=== PATIENT | female | born 1955 | race Two or more races ===

== ENCOUNTER → 2019-09-21 | Outpatient (CLI) | payer OTHER | END | disposition home or self-care (01) | LOC: LAB 15:42 | PROVIDERS: ATTEND Nurse Practitioner Family | DX: Z20.828 Contact with and (suspected) exposure to other viral communicable diseases (principal) | CPT/HCPCS: C9803; U0003 ==

== ENCOUNTER → 2020-08-30 | Outpatient (CLI) | payer BC, OTHER ==
[2020-08-30] VITALS (8 sets, daily range): BP systolic 125–140; BP diastolic 73–96
[~2020-08-30] MED LIST: ONDANSETRON HCL 4 MG/2 ML VIAL IV ONE; ONDANSETRON HCL 4 MG/2 ML VIAL ONE
[2020-08-30] MEDS: BAMLANIVIMAB 700MG/200ML 200 ML IV ONE (11:30)
== END | disposition home or self-care (01) ==
LOC: ER 11:06
PROVIDERS: ATTEND Internal Medicine
DX: Z23 Encounter for immunization (principal); U07.1 COVID-19; R11.0 Nausea
CPT/HCPCS: 96374; J2405; M0239; Q0239

== ENCOUNTER 2020-09-02 18:00 | Inpatient (IN) | payer BC ==
[~2020-09-02] VITALS: Ht 162.6 cm; Wt 68.0 kg
[2020-09-02] MEDS ORDERED: PROMETHAZINE HCL 25 MG/ML 1ML IV PRN (19:00)
[2020-09-02] MEDS ORDERED: DEXTROSE (50%) 50ML SYRG IV PRN (19:00)
[2020-09-02] MEDS ORDERED: REMDESIVIR PER PHARMACY 0 ML IV SCH (19:00)
[2020-09-02] MEDS ORDERED: LACTULOSE 20Gm/30ML SOLN PO PRN (19:00)
[2020-09-02] MEDS ORDERED: SODIUM CHLORIDE 0.9% 1,000 ML IV ONE ×2 (19:00)
[2020-09-02] MEDS ORDERED: NITROGLYCERIN 0.4 MG SL TAB SL PRN (19:15)
[2020-09-02] MEDS ORDERED: MORPHINE SULF INJ 2 MG/ML SYRINGE 1ML IV PRN (19:15)
[2020-09-02 19:23] LABS: Basophils # (auto) 0 10 ^3/uL (0-0.2); Basophils % (auto) 0.4 % (0.0-2.0); Eosinophils # (auto) 0 10 ^3/uL (0-0.8); Hematocrit 39.4 % (36.0-46.0); Hemoglobin 13.7 g/dL (12.2-16.2); Lymphocytes # (auto) 0.6 10 ^3/uL (0.4-5.4); Lymphocytes % (auto) 9.8 % (10.0-50.0); Mean Corpuscular Hemoglobin 32.9 pg (28.0-32.0); Mean Corpuscular Hgb Conc. 34.8 g/dL (32.0-36.0); Mean Corpuscular Volume 94.5 fL (80.0-100.0); Monocytes # (auto) 0.5 10 ^3/uL (0-1.3); Monocytes % (auto) 8.4 % (0.0-12.0); Neutrophils # (auto) 4.7 10 ^3/uL (1.6-8.6); Neutrophils % (auto) 81.4 % (37.0-80.0); Nucleated Red Blood Cells % 0.1 %; Platelet Count (auto) 179 10^3/uL (140-450); Red Blood Cells 4.17 10^6/uL (4.0-5.20); Red Cell Distribution Width 12.9 % (11.8-14.3); White Blood Cell 5.8 10^3/uL (4.4-10.8)
[2020-09-02 19:37] LABS: INR 0.99 (0.9-1.15); Partial Thromboplastin Time 31.5 sec (23.0-31.2)
[2020-09-02 19:41] LABS: Albumin 3.3 g/dL (3.4-5.0); BUN/Creatinine Ratio 26.3; Calcium 8.3 mg/dL (8.5-10.1); Potassium 3.9 mmol/L (3.5-5.1)
[2020-09-02 19:45] LABS: Bilirubin, Total 0.7 mg/dL (0.2-1.0); Total Protein 7.4 g/dL (6.4-8.2)
[2020-09-02 22:00] VITALS: BP 140/79
[2020-09-02] MEDS: FLORASTOR (S. BOULARDII) 250 MG CAP PO SCH (22:02)
[2020-09-02] MEDS: ENOXAPARIN SOD 40 MG/0.4 ML SYRINGE SC SCH (22:02)
[2020-09-02] MEDS: traMADol HCL 50 MG TAB PO PRN (22:03)
[2020-09-02 22:28] VITALS: BP 140/79
[2020-09-03] MEDS: PROMETHAZINE W/CODEINE 5 ML ORAL SYRUP PO PRN ×2 (03:26→20:08)
[2020-09-03 04:35] VITALS: BP 140/79
[2020-09-03 05:00] VITALS: BP 130/72
[2020-09-03 06:41] LABS: Basophils # (auto) 0 10 ^3/uL (0-0.2); Basophils % (auto) 0.3 % (0.0-2.0); Eosinophils # (auto) 0 10 ^3/uL (0-0.8); Hematocrit 34.8 % (36.0-46.0); Hemoglobin 11.9 g/dL (12.2-16.2); Lymphocytes # (auto) 0.9 10 ^3/uL (0.4-5.4); Lymphocytes % (auto) 19.2 % (10.0-50.0); Mean Corpuscular Hemoglobin 32.5 pg (28.0-32.0); Mean Corpuscular Hgb Conc. 34.3 g/dL (32.0-36.0); Monocytes # (auto) 0.4 10 ^3/uL (0-1.3); Neutrophils # (auto) 3.3 10 ^3/uL (1.6-8.6); Neutrophils % (auto) 71.5 % (37.0-80.0); Nucleated Red Blood Cells % 0.1 %; Platelet Count (auto) 162 10^3/uL (140-450); Red Blood Cells 3.66 10^6/uL (4.0-5.20); Red Cell Distribution Width 12.9 % (11.8-14.3); White Blood Cell 4.6 10^3/uL (4.4-10.8)
[2020-09-03 06:46] LABS: Potassium 3.3 mmol/L (3.5-5.1)
[2020-09-03 07:04] LABS: Albumin 2.8 g/dL (3.4-5.0); Bilirubin, Total 0.6 mg/dL (0.2-1.0); CRP High Sensitivity 10.6 mg/dL (< 0.3); Calcium 7.5 mg/dL (8.5-10.1); Total Protein 6.4 g/dL (6.4-8.2)
[2020-09-03] MEDS ORDERED: POTASSIUM CHL 20 Meq TABLET PO ONE (08:30)
[2020-09-03] MEDS: ACETAMINOPHEN 500 MG TAB PO PRN ×2 (08:47→21:39)
[2020-09-03 09:00] VITALS: BP 134/76
[2020-09-03] MEDS: DexAMETHasone SOD PHOS 10MG/1ML VIAL INJ IV SCH (09:16)
[2020-09-03] MEDS: levoFLOXacin 500MG 100 ML IV SCH (09:17)
[2020-09-03] MEDS: ZINC SULFATE 220mg CAP or TAB PO SCH (09:17)
[2020-09-03] MEDS: FLORASTOR (S. BOULARDII) 250 MG CAP PO SCH ×2 (09:17→20:07)
[2020-09-03] MEDS: ASCORBIC ACID 1,000 MG TAB PO SCH (09:17)
[2020-09-03] MEDS: CHOLECALCIFEROL (VITD3) 2,000 UNIT CAP/TAB PO SCH (09:17)
[2020-09-03] MEDS: ENOXAPARIN SOD 40 MG/0.4 ML SYRINGE SC SCH ×2 (09:18→21:30)
[2020-09-03] MEDS ORDERED: ENOXAPARIN SOD 40 MG/0.4 ML SYRINGE SC SCH (10:00)
[2020-09-03] MEDS: traMADol HCL 50 MG TAB PO PRN ×2 (10:15→20:09)
[2020-09-03 13:00] VITALS: BP 131/69
[2020-09-03] MEDS ORDERED: REMDESIVIR 200 MG in NS 210ml LOADING DOSE ADULT IV ONE (15:00)
[2020-09-03 17:00] VITALS: BP 118/69
[2020-09-03] MEDS: ALBUTEROL SULF HFA 90MCG INH 200DOSE IN PRN (19:17)
[2020-09-03] MEDS: BUDESONIDE (INHALATION) 180 MCG IH IN SCH (19:17)
[2020-09-03] MEDS: TEMAZEPAM 15 MG CAP PO PRN (21:35)
[2020-09-03 21:50] VITALS: BP 116/74
[2020-09-04 05:00] VITALS: BP 129/78
[2020-09-04 06:42] LABS: Potassium 3.5 mmol/L (3.5-5.1)
[2020-09-04 06:56] LABS: Albumin 3.4 g/dL (3.4-5.0); BUN/Creatinine Ratio 16.5; Bilirubin, Total 0.5 mg/dL (0.2-1.0); Calcium 9.1 mg/dL (8.5-10.1); Total Protein 8.6 g/dL (6.4-8.2)
[2020-09-04] MEDS: ALBUTEROL SULF HFA 90MCG INH 200DOSE IN PRN ×2 (07:00→19:12)
[2020-09-04] MEDS: BUDESONIDE (INHALATION) 180 MCG IH IN SCH ×2 (07:00→19:12)
[2020-09-04] MEDS: PROMETHAZINE W/CODEINE 5 ML ORAL SYRUP PO PRN ×3 (08:39→21:47)
[2020-09-04] MEDS: ACETAMINOPHEN 500 MG TAB PO PRN ×2 (08:40→17:44)
[2020-09-04 08:47] VITALS: BP 122/71
[2020-09-04] MEDS: levoFLOXacin 500MG 100 ML IV SCH (09:45)
[2020-09-04] MEDS: CHOLECALCIFEROL (VITD3) 2,000 UNIT CAP/TAB PO SCH (09:45)
[2020-09-04] MEDS: ZINC SULFATE 220mg CAP or TAB PO SCH (09:45)
[2020-09-04] MEDS: ENOXAPARIN SOD 40 MG/0.4 ML SYRINGE SC SCH ×2 (09:45→21:30)
[2020-09-04] MEDS: ASCORBIC ACID 1,000 MG TAB PO SCH (09:45)
[2020-09-04] MEDS: DexAMETHasone SOD PHOS 10MG/1ML VIAL INJ IV SCH (09:45)
[2020-09-04] MEDS: FLORASTOR (S. BOULARDII) 250 MG CAP PO SCH ×2 (09:45→21:30)
[2020-09-04 12:41] VITALS: BP 110/64
[2020-09-04] MEDS: REMDESIVIR 100mg 100 MG in SODIUM CHL 0.9% 230 ML IV SCH (16:01)
[2020-09-04 16:42] VITALS: BP 113/63
[2020-09-04] MEDS: TEMAZEPAM 15 MG CAP PO PRN (21:41)
[2020-09-04] MEDS: traMADol HCL 50 MG TAB PO PRN (21:42)
[2020-09-04 22:40] VITALS: BP 126/72
[2020-09-05 05:00] VITALS: BP 124/73
[2020-09-05] MEDS: traMADol HCL 50 MG TAB PO PRN ×3 (05:00→17:11)
[2020-09-05] MEDS: BUDESONIDE (INHALATION) 180 MCG IH IN SCH ×2 (06:05→18:50)
[2020-09-05] MEDS: ALBUTEROL SULF HFA 90MCG INH 200DOSE IN PRN ×2 (06:05→18:50)
[2020-09-05 06:07] LABS: Basophils # (auto) 0 10 ^3/uL (0-0.2); Eosinophils # (auto) 0 10 ^3/uL (0-0.8); Hematocrit 39.2 % (36.0-46.0); Hemoglobin 13.4 g/dL (12.2-16.2); Lymphocytes # (auto) 0.6 10 ^3/uL (0.4-5.4); Lymphocytes % (auto) 12.9 % (10.0-50.0); Mean Corpuscular Hemoglobin 32.1 pg (28.0-32.0); Mean Corpuscular Hgb Conc. 34.1 g/dL (32.0-36.0); Mean Corpuscular Volume 94.2 fL (80.0-100.0); Monocytes # (auto) 0.2 10 ^3/uL (0-1.3); Monocytes % (auto) 4.5 % (0.0-12.0); Neutrophils % (auto) 82.6 % (37.0-80.0); Nucleated Red Blood Cells % 0.1 %; Platelet Count (auto) 318 10^3/uL (140-450); Red Blood Cells 4.16 10^6/uL (4.0-5.20); White Blood Cell 4.8 10^3/uL (4.4-10.8)
[2020-09-05 06:29] LABS: Potassium 3.7 mmol/L (3.5-5.1)
[2020-09-05 06:40] LABS: Albumin 3.1 g/dL (3.4-5.0); BUN/Creatinine Ratio 31.5; Bilirubin, Total 0.5 mg/dL (0.2-1.0); CRP High Sensitivity 4.79 mg/dL (< 0.3); Calcium 8.8 mg/dL (8.5-10.1); Total Protein 7.4 g/dL (6.4-8.2)
[2020-09-05 08:51] VITALS: BP 115/64
[2020-09-05] MEDS: levoFLOXacin 500MG 100 ML IV SCH (09:44)
[2020-09-05] MEDS: DexAMETHasone SOD PHOS 10MG/1ML VIAL INJ IV SCH (09:44)
[2020-09-05] MEDS: CHOLECALCIFEROL (VITD3) 2,000 UNIT CAP/TAB PO SCH (09:45)
[2020-09-05] MEDS: ZINC SULFATE 220mg CAP or TAB PO SCH (09:45)
[2020-09-05] MEDS: ASCORBIC ACID 1,000 MG TAB PO SCH (09:45)
[2020-09-05] MEDS: ENOXAPARIN SOD 40 MG/0.4 ML SYRINGE SC SCH ×2 (09:45→21:15)
[2020-09-05] MEDS: FLORASTOR (S. BOULARDII) 250 MG CAP PO SCH ×2 (09:45→21:15)
[2020-09-05] MEDS: PROMETHAZINE W/CODEINE 5 ML ORAL SYRUP PO PRN ×3 (10:34→21:16)
[2020-09-05 12:51] VITALS: BP 113/72
[2020-09-05] MEDS: REMDESIVIR 100mg 100 MG in SODIUM CHL 0.9% 230 ML IV SCH (15:08)
[2020-09-05 16:49] VITALS: BP 117/72
[2020-09-05] MEDS: TEMAZEPAM 15 MG CAP PO PRN (21:15)
[2020-09-05] MEDS: ACETAMINOPHEN 500 MG TAB PO PRN (21:21)
[2020-09-05 22:00] VITALS: BP 109/68
[2020-09-05 23:00] VITALS: BP 109/68
[2020-09-06] MEDS: traMADol HCL 50 MG TAB PO PRN (04:53)
[2020-09-06 05:00] VITALS: BP 126/69
[2020-09-06] MEDS: ALBUTEROL SULF HFA 90MCG INH 200DOSE IN PRN ×2 (07:07→18:43)
[2020-09-06] MEDS: BUDESONIDE (INHALATION) 180 MCG IH IN SCH ×2 (07:08→18:44)
[2020-09-06 09:22] VITALS: BP 114/71
[2020-09-06 09:57] LABS: Bilirubin, Total 0.5 mg/dL (0.2-1.0); Calcium 8.7 mg/dL (8.5-10.1); Potassium 3.4 mmol/L (3.5-5.1)
[2020-09-06] MEDS: FLORASTOR (S. BOULARDII) 250 MG CAP PO SCH ×2 (09:58→20:10)
[2020-09-06] MEDS: ZINC SULFATE 220mg CAP or TAB PO SCH (09:58)
[2020-09-06] MEDS: DexAMETHasone SOD PHOS 10MG/1ML VIAL INJ IV SCH (09:58)
[2020-09-06] MEDS: CHOLECALCIFEROL (VITD3) 2,000 UNIT CAP/TAB PO SCH (09:58)
[2020-09-06] MEDS: ENOXAPARIN SOD 40 MG/0.4 ML SYRINGE SC SCH ×2 (09:58→20:10)
[2020-09-06] MEDS: ASCORBIC ACID 1,000 MG TAB PO SCH (09:58)
[2020-09-06] MEDS ORDERED: POTASSIUM CHL 20 Meq TABLET PO ONE (11:15)
[2020-09-06 13:00] VITALS: BP 115/71
[2020-09-06] MEDS: REMDESIVIR 100mg 100 MG in SODIUM CHL 0.9% 230 ML IV SCH (15:29)
[2020-09-06] MEDS: TEMAZEPAM 15 MG CAP PO PRN (20:10)
[2020-09-06 22:00] VITALS: BP 116/70
[2020-09-06] MEDS: PROMETHAZINE W/CODEINE 5 ML ORAL SYRUP PO PRN (22:51)
[2020-09-07 05:00] VITALS: BP 112/70
[2020-09-07] MEDS: BUDESONIDE (INHALATION) 180 MCG IH IN SCH ×2 (06:09→18:57)
[2020-09-07] MEDS: ALBUTEROL SULF HFA 90MCG INH 200DOSE IN PRN ×2 (06:09→18:57)
[2020-09-07 06:39] LABS: Albumin 2.8 g/dL (3.4-5.0); BUN/Creatinine Ratio 37.9; Bilirubin, Total 0.4 mg/dL (0.2-1.0); Calcium 8.5 mg/dL (8.5-10.1); Total Protein 6.4 g/dL (6.4-8.2)
[2020-09-07] MEDS: ACETAMINOPHEN 500 MG TAB PO PRN ×2 (08:05→19:40)
[2020-09-07 09:00] VITALS: BP 114/68
[2020-09-07] MEDS: ZINC SULFATE 220mg CAP or TAB PO SCH (09:38)
[2020-09-07] MEDS: FLORASTOR (S. BOULARDII) 250 MG CAP PO SCH (09:38)
[2020-09-07] MEDS: ASCORBIC ACID 1,000 MG TAB PO SCH (09:38)
[2020-09-07] MEDS: DexAMETHasone SOD PHOS 10MG/1ML VIAL INJ IV SCH (09:38)
[2020-09-07] MEDS: ENOXAPARIN SOD 40 MG/0.4 ML SYRINGE SC SCH (09:39)
[2020-09-07] MEDS: CHOLECALCIFEROL (VITD3) 2,000 UNIT CAP/TAB PO SCH (09:39)
[2020-09-07 13:00] VITALS: BP 112/71
[2020-09-07] MEDS: REMDESIVIR 100mg 100 MG in SODIUM CHL 0.9% 230 ML IV SCH (14:54)
[2020-09-07 16:38] VITALS: BP 112/71
[2020-09-07 17:09] VITALS: BP 115/68
[2020-09-07] MEDS: PROMETHAZINE W/CODEINE 5 ML ORAL SYRUP PO PRN (19:40)
== END 2020-09-07 20:25 | disposition home or self-care (01) | DRG 177 ==
LOC: ER 18:02 → TELE 19:01 → TELE-EAST 20:43
PROVIDERS: ADMIT Internal Medicine; ATTEND Internal Medicine
PROC: XW033E5 Introduction of Remdesivir Anti-infective into Peripheral Vein, Percutaneous Approach, New Technology Group 5 (ICD-10-PCS; principal; 2020-09-02)
DX: U07.1 COVID-19 (principal); J12.82 Pneumonia due to coronavirus disease 2019; J96.01 Acute respiratory failure with hypoxia; D68.59 Other primary thrombophilia; K76.0 Fatty (change of) liver, not elsewhere classified; D89.839 Cytokine release syndrome, grade unspecified; Z79.82 Long term (current) use of aspirin; Z90.710 Acquired absence of both cervix and uterus
CPT/HCPCS: 36415; 36600; 71045; 71250; 80053; 82306; 82728; 82805; 83036; 83605; 83615; 83735; 83880; 84484; 85025; 85379; 85610; 85652; 85730; 86141; 87040; 94640; 96360; G0378; J1100; J1956

== ENCOUNTER → 2022-06-11 | Outpatient (CLI) | payer BC ==
[2022-06-11 09:13] LABS: Basophils # (auto) 0.1 10 ^3/uL (0-0.2); Basophils % (auto) 1.1 % (0.0-2.0); Eosinophils # (auto) 0.2 10 ^3/uL (0-0.8); Eosinophils % (auto) 2.8 % (0.0-7.0); Hematocrit 30.7 % (36.0-46.0); Hemoglobin 10.3 g/dL (12.2-16.2); Lymphocytes # (auto) 1.6 10 ^3/uL (0.4-5.4); Lymphocytes % (auto) 27.8 % (10.0-50.0); Mean Corpuscular Hemoglobin 33.4 pg (28.0-32.0); Mean Corpuscular Hgb Conc. 33.7 g/dL (32.0-36.0); Mean Corpuscular Volume 99.3 fL (80.0-100.0); Monocytes # (auto) 0.4 10 ^3/uL (0-1.3); Monocytes % (auto) 6.3 % (0.0-12.0); Neutrophils # (auto) 3.5 10 ^3/uL (1.6-8.6); Nucleated Red Blood Cells % 0.7 %; Red Cell Distribution Width 13.9 % (11.8-14.3); White Blood Cell 5.6 10^3/uL (4.4-10.8)
[2022-06-11 09:35] LABS: Urine Blood Negative /uL (Negative); Urine Specific Gravity 1.027 (1.001-1.035)
[2022-06-11 09:40] LABS: Potassium 4.5 mmol/L (3.5-5.1)
[2022-06-11 09:48] LABS: BUN/Creatinine Ratio 30.1; Bilirubin, Total 0.7 mg/dL (0.2-1.0); Calcium 9.8 mg/dL (8.5-10.1); Total Protein 8.1 g/dL (6.4-8.2)
== END | disposition home or self-care (01) ==
LOC: LAB 08:59
PROVIDERS: ATTEND Obstetrics & Gynecology
DX: Z01.419 Encounter for gynecological examination (general) (routine) without abnormal findings (principal)
CPT/HCPCS: 36415; 80053; 81001; 85025

== ENCOUNTER → 2022-06-11 | Outpatient (CLI) | payer BC, MEDICARE | END | disposition home or self-care (01) | LOC: XYW 14:21 | PROVIDERS: ATTEND Internal Medicine | DX: R31.9 Hematuria, unspecified (principal); I51.7 Cardiomegaly; I25.10 Atherosclerotic heart disease of native coronary artery without angina pectoris; I70.0 Atherosclerosis of aorta | CPT/HCPCS: 74178; Q9967 ==

== ENCOUNTER → 2022-06-12 | Outpatient (CLI) | payer BC, MEDICARE ==
[2022-06-12 09:00] LABS: % Iron Saturation 44.4 % (15-50)
[2022-06-12 09:04] LABS: Ferritin 1010.6 ng/mL (10-322)
[2022-06-12 09:05] LABS: Folate (Folic Acid) 8.39 ng/mL (5.38-24)
== END | disposition home or self-care (01) ==
LOC: LAB 08:24
PROVIDERS: ATTEND Internal Medicine
DX: Z00.00 Encounter for general adult medical examination without abnormal findings (principal)
CPT/HCPCS: 36415; 82607; 82728; 82746; 83036; 83540; 83550; 84443